=== PATIENT | male | born 1945 | race Caucasian/White ===

== ENCOUNTER → 2017-02-11 | Outpatient (CLI) | payer MEDICARE ==
--- NOTE | 2017-02-11 08:02 | MR ---
EXAMINATION TYPE: MR cervical spine wo con DATE OF EXAM: 02/11/2017 6:30 AM COMPARISON: NONE HISTORY: csp radiculopathy TECHNIQUE: Multiplanar, multisequence images of the cervical spine were acquired. C2-C3: No evidence for degenerative disc disease. No disc bulge/herniation or protrusion. No Canal stenosis. Foramina are patent bilaterally. C3-C4: No evidence for degenerative disc disease. No disc bulge/herniation or protrusion. No Canal stenosis. Foramina are patent bilaterally. C4-C5: Mild disc desiccation is noted. There is mild posterior disc bulge posterocentrally and toward s the left. There is resultant left foraminal encroachment. Mild degenerative change of the left-side d cervical apophyseal joint. No evidence for central stenosis. C5-C6: No evidence for degenerative disc disease. No disc bulge/herniation or protrusion. No Canal stenosis. Foramina are patent bilaterally. C6-C7: Mild disc desiccation is noted. Posterocentral disc bulge with small annular tear. Mild efface ment ventral thecal sac. No evidence for central stenosis or cord contact. C7-T1: No evidence for degenerative disc disease. No disc bulge/herniation or protrusion. No Canal stenosis. Foramina are patent bilaterally. Cervical segments are intact. There is normal alignment. Cervical spinal cord is of normal signal. Craniovertebral junction relationships are within normal limits. IMPRESSION: 1. Mild disc desiccation at C4-5 and C6-7. 2. Left paracentral disc bulge at C4-5 level resulting in left foraminal encroachment.
== END | disposition home or self-care (01) ==
LOC: RADMRIMAIN 05:58
PROVIDERS: ATTEND Family Medicine
DX: M50.121 Cervical disc disorder at C4-C5 level with radiculopathy (principal)
CPT/HCPCS: 72141

== ENCOUNTER → 2018-11-05 | Outpatient (CLI) | payer MEDICARE ==
--- NOTE | 2018-11-05 18:02 | CTL ---
EXAMINATION TYPE: CT Low Dose Lung DATE OF EXAM ORDERED: 11/05/2018 HISTORY: Lung cancer screening CT DLP: [address] CTDI: 3.3 mGy Automated exposure control for dose reduction was used. SCREENING VISIT: Initial COMPARISON: None TECHNIQUE: Low dose computed tomography scan was performed through the chest at 1 mm thick sections a nd reconstructed images in the coronal plane at [address] DIAGNOSTIC QUALITY: Limited, but interpretable FINDINGS: LUNG NODULES: None. LUNGS: COPD: Severity: None Fibrosis: Severity: None Lymph nodes: There are scattered small lymph nodes within the mediastinum. No enlarged mediastinal ad enopathy is evident. Other findings: Ascending thoracic aorta at the level the main pulmonary artery is 3.2 cm. The main p ulmonary artery the bifurcation is 2.3 cm. RIGHT PLEURAL SPACE: Effusion: None Calcification: None Thickening: There is a 1.2 cm area of thickening along the posterior right apex. Series 4 image 37. Pneumothorax: None LEFT PLEURAL SPACE: Effusion: None Calcification: None Thickening: None Pneumothorax: None HEART: Heart Size: Normal Coronary calcification: Mild Pericardial effusion: None OTHER FINDINGS: Upper abdomen: There may be a 1.5 cm cyst in the anterior upper right kidney. Bony thorax: Normal Supraclavicular region: Normal Other: None IMPRESSION: Probably benign findings FOLLOW UP CT CHEST RECOMMENDATION: Follow up CT chest 6 months to reevaluate posterior right apical p leural thickening CT LUNG RAD: Lung-Rad 3 Probably Benign
== END | disposition home or self-care (01) ==
LOC: RADCTMAIN 11:58
PROVIDERS: ATTEND Family Medicine
DX: Z12.2 Encounter for screening for malignant neoplasm of respiratory organs (principal); Z87.891 Personal history of nicotine dependence

== ENCOUNTER → 2019-05-10 | Outpatient (CLI) | payer MEDICARE ==
--- NOTE | 2019-05-10 15:32 | CT ---
EXAMINATION TYPE: CT chest w con DATE OF EXAM: 05/10/2019 COMPARISON: 11/05/2018 HISTORY: 73-year-old male prior abnormal exam, smoking history TECHNIQUE: Contiguous axial scanning of the chest after the administration of 80 mL of Isovue 300. C oronal/sagittal reconstructions performed. CT DLP: 415.8mGycm. Automatic exposure control utilized for a dose reduction. FINDINGS: Heart is normal size with small anterior basilar pericardial effusion. Coronary vessel calcifications are present. Aorta normal caliber with mild atherosclerotic arch calcifications and conventional arch vessel branc gayatri anatomy. Scattered nonenlarged mediastinal lymph nodes. No thoracic lymphadenopathy by CT size criteria. Minimal centrilobular emphysema. Biapical pleural parenchymal scarring redemonstrated. Stable 1.2 cm subpleural plaque-like density posterior right apex. Given stability, findings compatible with pleura l parenchymal scarring. No consolidation or pleural effusion. Stable 3 mm posterior left basilar pulmonary nodule. Stability for 7 months is compatible with a sydnee gn etiology. Small hiatal hernia. Anterior hilar splenule. Low attenuation of the liver suggesting underlying fatt y infiltration. Tiny gallstone. Redemonstrated 1.9 cm cyst anterior right kidney. No osseous destructive process. IMPRESSION: 1. COPD with very mild centrilobular emphysema and biapical pleural parenchymal scarring. 2. The 1.2 cm subpleural plaque-like density posterior right apex remains unchanged. This is in keepi ng with additional pleural-parenchymal scarring. 3. Patient can return to annual low-dose lung cancer screening CT. 4. Small hiatal hernia and hepatic steatosis. Cholelithiasis.
== END | disposition home or self-care (01) ==
LOC: RADCTMAIN 12:48
PROVIDERS: ATTEND Family Medicine
DX: J43.2 Centrilobular emphysema (principal); K44.9 Diaphragmatic hernia without obstruction or gangrene; J98.4 Other disorders of lung
CPT/HCPCS: 82565; 84520; 71260; 36415; Q9967

== ENCOUNTER → 2022-11-13 | Outpatient (CLI) | payer MEDICARE ==
--- NOTE | 2022-11-13 13:35 | CTL ---
EXAMINATION TYPE: CT Low Dose Lung DATE OF EXAM ORDERED: 11/13/2022 HISTORY: Long-term tobacco use. Lung cancer screening CT DLP: 88.[address] CTDI: 2.4 mGy Automated exposure control for dose reduction was used. SCREENING VISIT: Prior study November 05, 2018. COMPARISON: First step to baseline TECHNIQUE: Low dose computed tomography scan was performed through the chest at 1 mm thick sections a nd reconstructed images in multiple planes at 1 mm and [address] DIAGNOSTIC QUALITY: Satisfactory FINDINGS: LUNG NODULES: Present, detailed below: A few scattered small nodules some which are calcified are redemonstrated. No new or enlarging greate r than 5 mm pulmonary nodules. LUNGS: COPD: Severity: Mild Fibrosis: Severity: Mild Lymph nodes: None Other findings: None RIGHT PLEURAL SPACE: Effusion: None Calcification: None Thickening: None Pneumothorax: None LEFT PLEURAL SPACE: Effusion: None Calcification: None Thickening: None Pneumothorax: None HEART: Heart Size: Normal Coronary Calcification: Moderate to severe three-vessel Pericardial Effusion: Multiple tiny anterior-inferior pericardial effusion OTHER FINDINGS: Upper abdomen: None Bony thorax: Levoconvex scoliosis centered in the upper thoracic spine is redemonstrated. Supraclavicular region: None Other: None IMPRESSION: Mild emphysematous change without significant new or enlarging greater than 5 [address] pulmonar y nodule. CT LUNG RAD AND CT CHEST RECOMMENDATION: Lung-Rad 2 Benign Appearance or Behavior: Continue annual sc reening with LDCT in 12 months. S Modifier (other clinically significant findings): S Moderate to severe three-vessel coronary artery calcification is redemonstrated and should be correla tomy with additional cardiac risk factors
== END | disposition home or self-care (01) ==
LOC: RADCTMAIN 12:07
PROVIDERS: ATTEND Family Medicine
DX: Z12.2 Encounter for screening for malignant neoplasm of respiratory organs (principal); J43.9 Emphysema, unspecified; Z87.891 Personal history of nicotine dependence
CPT/HCPCS: 71271

== ENCOUNTER → 2024-11-15 | Outpatient (CLI) | payer MEDICARE | LOC: LABWHC1 13:08 | PROVIDERS: ATTEND Internal Medicine Nephrology | DX: N18.31 Chronic kidney disease, stage 3a (principal) | CPT/HCPCS: 36415 ==

== ENCOUNTER → 2024-11-23 | Outpatient (CLI) | payer MEDICARE ==
--- NOTE | 2024-11-23 09:32 | CTL ---
EXAMINATION TYPE: CT Low Dose Lung DATE OF EXAM: 11/23/2024 9:15 AM COMPARISON: 11/13/2022. CLINICAL INDICATION: Male, 79 years old with history of Z12.2 LUNG CA SCR Z87.891 FORMER SMOKER; Form er smoker, 1 ppd x 50 years, history of tobacco use. TECHNIQUE: Multiple axial non-contrast scans were obtained from approximately the lung apices through the upper abdomen. Coronal and sagittal reformatted images were obtained. Low dose technique was uti lized. MIP were created on a separate workstation and submitted for review. CT DLP: 52 mGycm, Automated exposure control for dose reduction was used. CT Contrast: Contrast used: None Oral contrast used: None FINDINGS: Lack of intravenous contrast and low dose technique limits the evaluation of the vascular and soft ti ssue structures. LUNGS: No evidence of pulmonary fibrosis. No evidence of focal consolidation, pneumothorax or pleural effusion. Centrilobular emphysema changes. Nodules: RUL: Calcified granuloma series 9 image 14.. RML: None. RLL: None. YOLY: None. LLL: None. AIRWAY: Patent and unremarkable. HEART: Size within normal limits.Atherosclerosis of the arterial vasculature. MEDIASTINUM: No gross evidence of adenopathy. VASCULATURE: No aortic aneurysm. MUSCULOSKELETAL: Mild disc degeneration changes are present throughout the thoracolumbar spine. SOFT TISSUES/LYMPH NODES: Unremarkable. LOWER NECK: No significant findings. UPPER ABDOMEN: No significant findings. IMPRESSION: 1. No clinically significant pulmonary nodules. 2. Mild emphysema. CT LUNG RAD AND CT CHEST RECOMMENDATION: Lung-Rad 2 Benign Appearance or Behavior: Continue annual sc reening with LDCT in 12 months. S Modifier (other clinically significant findings): None Recommend smoking cessation (if current smoker), or continuation of smoking cessation (if prior smoke r). Annual screening for lung cancer with low-dose computed tomography is recommended in adults ages 55 to 77 years who have a 30 pack-year smoking history and currently smoke or have quit within the pa st 15 years. Screening should be discontinued once a person has not smoked for 15 years or develops a health problem that substantially limits life expectancy or the ability or willingness to have curat sima lung surgery. Lung rads 2021 [email or web address] [facility], , 11/23/2024 9:30 AM
== END | disposition home or self-care (01) ==
LOC: RADCTMAIN 08:53
PROVIDERS: ATTEND Family Medicine
DX: Z12.2 Encounter for screening for malignant neoplasm of respiratory organs (principal); J43.2 Centrilobular emphysema; Z87.891 Personal history of nicotine dependence
CPT/HCPCS: 71271